=== PATIENT | male | born 1980 | race Caucasian/White ===

== ENCOUNTER 2016-12-24 13:06 | Emergency (ER) | payer BC ==
--- NOTE | 2016-12-24 15:00 | ER Document Report ---
HPI - HPI Patient complains to provider of: Left hand discoloration Onset: This afternoon Onset/Duration: Gone Quality of pain: No pain Pain Level: Denies Context: Patient states that he was on break while at work and noticed a pink/purple discoloration to the dorsal aspect of his left hand. Patient states symptoms lasted about an hour and then resolved. Patient denies any trauma to the hand. Patient denies any history of right nods or any known peripheral vascular issues. Patient denied any discomfort to his hand. Associated Symptoms: Other - Left hand discoloration Exacerbated by: Denies Relieved by: Denies Similar symptoms previously: No Recently seen / treated by doctor: No - ROS ROS below otherwise negative: Yes Systems Reviewed and Negative: Yes All other systems reviewed and negative - CONSTITUTIONAL Constitutional: DENIES: Fever - NEURO Neurology: DENIES: Weakness - GASTROINTESTINAL Gastrointestinal: DENIES: Nausea - REPRODUCTIVE Reproductive: DENIES: : - MUSCULOSKELETAL Musculoskeletal: DENIES: Extremity pain, Swelling - DERM Skin Color: Other - Transient hand discoloration Skin Problems: None Past Medical History - General Information source: Patient - Social History Smoking Status: Never Smoker Chew tobacco use (# tins/day): No Frequency of alcohol use: None Drug Abuse: None Occupation: [employer] Family History: CAD, DM, Hyperlipidemia, Hypertension, Malignancy - Past Medical History Cardiac Medical History: Reports: Hx Coronary Artery Disease, Hx Heart Attack, Hx Hypercholesterolemia, Hx Hypertension GI Medical History: Reports: Hx Gastroesophageal Reflux Disease Musculoskeltal Medical History: Reports Hx Arthritis - gout, Reports Hx Gout Past Surgical History: Reports: Hx Cardiac Catheterization - 4 stents, Hx Coronary Stent - 4, Hx Orthopedic Surgery - right hand - Immunizations Immunizations up to date: Yes Hx Diphtheria, Pertussis, Tetanus Vaccination: Yes Vertical Provider Document - CONSTITUTIONAL Agree With Documented VS: Yes Exam Limitations: No Limitations General Appearance: WD/WN, No Apparent Distress - INFECTION CONTROL TRAVEL OUTSIDE OF THE [place] IN LAST 30 DAYS: No - HEENT HEENT: Atraumatic, Normocephalic - NECK Neck: Normal Inspection, Supple - RESPIRATORY Respiratory: Breath Sounds Normal, No Respiratory Distress - CARDIOVASCULAR Cardiovascular: Regular Rate, Regular Rhythm, No Murmur Pulses: Normal: Radial Notes: Normal capillary refill to bilateral upper extremities, less than 3 seconds - BACK Back: Normal Inspection - MUSCULOSKELETAL/EXTREMETIES Musculoskeletal/Extremeties: MAEW, FROM, Non-Tender, No Edema. negative: Eccymosis - NEURO Level of Consciousness: Awake, Alert, Appropriate Motor/Sensory: No Motor Deficit, No Sensory Deficit - DERM Integumentary: Warm, Dry, No Rash Notes: Normal skin color and temperature to left hand Course - Vital Signs Vital signs: Temp Pulse Resp BP Pulse Ox 18 12/24/16 13:36 Discharge - Discharge Clinical Impression: temporary hand discoloration Condition: Stable Disposition: HOME, SELF-CARE Additional Instructions: Return immediately for any new or worsening symptoms Followup with your primary care provider, call tomorrow to make a followup appointment Your primary doctor can refer you to a vascular surgeon for a recheck of your symptoms Avoid extreme temperature changes Forms: Return to Work Referrals: IVÁN TELLEZ MD [ACTIVE STAFF] - Follow up as needed
[2016-12-24 15:16] VITALS: BP 110/70
== END 2016-12-24 15:15 | disposition home or self-care (01) ==
LOC: ER 13:06
DX: R23.8 Other skin changes (principal)
CPT/HCPCS: 99283

== ENCOUNTER 2018-01-24 07:26 | Emergency (ER) | payer BC ==
[2018-01-24] MEDS ORDERED: ASPIRIN 81 MG TABLET, CHEWABLE PO ONE (07:28)
[2018-01-24] MEDS ORDERED: HYDROCODONE/ACETAMINOPHEN 5-325 MG TABLET PO ONE (07:49)
--- NOTE | 2018-01-24 07:49 | ER Document Report ---
ED Cardiac - General Stated Complaint: CHEST PAIN Time Seen by Provider: 01/24/18 07:31 Mode of Arrival: Ambulatory Information source: Patient Notes: History of Present Illness Chief Complaint: Complete [ ] History obtained from [patient] 37 years old male with a history of 4 stents placed in 2015, March 2017 had 5 vessel bypass surgery, presents today with left precordial chest pain since this morning. It was not radiating not associated with any nausea vomiting palpitation or diaphoresis. He claims that he has been lifting heavy turkey and ham and that is what caused him the pain. The pain did not wake him up, it came on after he woke up and start moving around. Also says when he lifted his arm that his left arm it causes increasing pain. No fever chills or other constitutional symptoms Symptoms began:[ today] Onset: [gradual] Timing: [constant, now gone] Quality: ["pain"] Intensity: [moderate] Location: [Left precordial] Radiation: [none] Migration: [none] Aggravating factors: [none] Relieving factors: [none] Major PE risk factors: [none] Major aortic dissection risk factors: [none] Review of Systems: All other systems negative as reviewed. CONSTITUTIONAL No fever, No chills, No sweats. EYES No eye pain. ENT No URI symptoms, No sore throat, No ear pain. CARDIOVASCULAR + chest pain, No palpitations, No edema. RESPIRATORY No Cough, No SOB, No wheezing. GASTROINTESTINAL No abdominal pain, No nausea, No diarrhea, No vomiting, No GI Bleeding. GENITOURINARY No UTI symptoms. MUSCULOSKELETAL No back pain, No calf swelling, No calf pain. SKIN No Rash. NEUROLOGIC No Headache Physical Exam CONSTITUTIONAL Vital signs reviewed, Patient appears to be comfortable, Alert and oriented X 3 , Normal stature. HEAD Atraumatic, Normocephalic. EYES Eyes are normal to inspection, No discharge from eyes, Extraocular muscles intact, Sclera are normal, Conjunctiva are normal. ENT Ears normal to inspection, Nose examination normal, Posterior pharynx normal, Mouth normal to inspection. NECK Normal ROM, No jugular venous distention, No meningeal signs, no carotid bruit. RESPIRATORY CHEST Midline surgical scar noted in the chest Chest is nontender, Breath sounds normal, No respiratory distress. CARDIOVASCULAR RRR, No murmurs, Normal S1 S2, No rub, No gallop. ABDOMEN Abdomen is nontender, No pulsatile masses, No other masses, Bowel sounds normal , No distension, No peritoneal signs, No hernias. BACK There is no CVA Tenderness, There is no tenderness to palpation, Normal inspection. UPPER EXTREMITY Inspection normal, No cyanosis, No clubbing, No edema, 2+ radial pulses. LOWER EXTREMITY Inspection normal, No cyanosis, No clubbing, No edema, No calf tenderness, 2+ femoral pulses. NEURO No focal motor deficits, No focal sensory deficits, Speech normal. SKIN Skin is warm, Skin is dry, Skin is normal color. LYMPHATIC No adenopathy in neck. PSYCHIATRIC Normal affect. TRAVEL OUTSIDE OF THE [place] IN LAST 30 DAYS: No - HPI Notes: Dictated - Related Data Allergies/Adverse Reactions: No Known Allergies Allergy (Verified 12/24/16 13:29) Past Medical History - Social History Smoking Status: Never Smoker Frequency of alcohol use: Rare Drug Abuse: None Lives with: Family Family History: CAD, DM, Hyperlipidemia, Hypertension, Malignancy - Past Medical History Cardiac Medical History: Reports: Hx Coronary Artery Disease, Hx Heart Attack, Hx Hypercholesterolemia, Hx Hypertension GI Medical History: Reports: Hx Gastroesophageal Reflux Disease Musculoskeletal Medical History: Reports Hx Arthritis - gout, Reports Hx Gout Past Surgical History: Reports: Hx Cardiac Catheterization - 4 stents, Hx Coronary Stent - 4, Hx Orthopedic Surgery - right hand - Immunizations Immunizations up to date: Yes Hx Diphtheria, Pertussis, Tetanus Vaccination: Yes Review of Systems - Review of Systems Notes: Dictated Physical Exam - Vital signs Vitals: Pulse Ox 100 01/24/18 07:48 - Notes Notes: Dictated Course - Re-evaluation Re-evalutation: 01/24/18 15:54 Remained stable no chest pains. 2 sets of enzymes came back negative - Vital Signs Vital signs: Temp Pulse Resp BP Pulse Ox 15 115/85 99 01/24/18 13:01 01/24/18 13:01 01/24/18 13:01 - Laboratory Result Diagrams: 01/24/18 07:40 01/24/18 07:40 Laboratory results interpreted by me: 01/24/18 01/24/18 01/24/18 07:40 07:40 07:40 RDW 15.7 H Plt Count 124 L BUN 21 H Creatine Kinase 242 H CK-MB (CK-2) 4.79 H - Diagnostic Test Radiology reviewed: Reports reviewed - Normal chest x-ray - EKG Interpretation by Me EKG shows normal: Sinus rhythm - Sinus rhythm at the rate of 75 bpm, J-point elevation in V2. Otherwise compared with a old echocardiogram no major changes. No acute ST elevation ST depression. Discharge - Discharge Clinical Impression: Chest wall pain Condition: Fair Instructions: Chest Wall Pain ([facility])
[2018-01-24 07:58] LABS: ABSOLUTE EOSINOPHILS # (AUTO) 0.2 10^3/uL (0.0-0.6); ABSOLUTE LYMPHOCYTES (AUTO) 1.5 10^3/uL (0.5-4.7); ABSOLUTE MONOCYTES (AUTO) 0.4 10^3/uL (0.1-1.4); ABSOLUTE NEUT (AUTO) 2.9 10^3/uL (1.7-8.2); BASOPHILS % (AUTO) 0.5 % (0-2); EOSINOPHILS % (AUTO) 3.5 % (0-6); HEMATOCRIT 41.4 % (37.9-51.0); HEMOGLOBIN 14.5 g/dL (13.5-17.0); LYMPHOCYTES % (AUTO) 30.3 % (13-45); MEAN CORPUSCULAR HEMOGLOBIN 27.9 pg (27.0-33.4); MEAN CORPUSCULAR VOLUME 80 fl (80-97); MONOCYTES % (AUTO) 7.2 % (3-13); PLATELET COUNT 124 10^3/uL (150-450); RED BLOOD COUNT 5.18 10^6/uL (4.35-5.55); RED CELL DISTRIBUTION WIDTH 15.7 % (11.5-14.0); SEGMENTED NEUTROPHILS % (AUTO) 58.5 % (42-78); TOTAL CELLS COUNTED % (AUTO) 100 %; WHITE BLOOD COUNT 4.9 10^3/uL (4.0-10.5)
[2018-01-24 08:01] LABS: INTERNATIONAL RATION (INR) 1.01; PROTHROMBIN TIME 13.8 SEC (11.4-15.4)
[2018-01-24 08:08] LABS: ALANINE AMINOTRANSFERASE 58 U/L (21-72); ALBUMIN 3.9 g/dL (3.5-5.0); ALKALINE PHOSPHATASE 90 U/L (38-126); ANION GAP 10 (5-19); ASPARTATE AMINO TRANSFERASE 38 U/L (17-59); BILIRUBIN,DIRECT 0.2 mg/dL (0.0-0.4); BILIRUBIN,TOTAL 0.7 mg/dL (0.2-1.3); BLOOD UREA NITROGEN 21 mg/dL (7-20); CALCIUM 9.2 mg/dL (8.4-10.2); CARBON DIOXIDE 28 mmol/L (22-30); CHLORIDE 105 mmol/L (98-107); CREATINE KINASE 242 U/L (55-170); GLUCOSE 82 mg/dL (75-110); POTASSIUM 4.1 mmol/L (3.6-5.0); SODIUM 143.1 mmol/L (137-145); TOTAL PROTEIN 6.4 g/dL (6.3-8.2)
[2018-01-24 08:19] LABS: CREATINE KINASE MB 4.79 ng/mL (<4.55)
[2018-01-24 08:21] LABS: TROPONIN I < 0.012 ng/mL
--- NOTE | 2018-01-24 08:34 | RADIOLOGY REPORT (SQ) ---
EXAM DESCRIPTION: CHEST SINGLE VIEW COMPLETED DATE/TIME: 01/24/2018 8:19 am REASON FOR STUDY: cp COMPARISON: CT angio chest 02/03/2016, Chest films 02/03/2016, 08/17/2015 EXAM PARAMETERS: NUMBER OF VIEWS: One view. TECHNIQUE: Single frontal radiographic view of the chest acquired. RADIATION DOSE: NA LIMITATIONS: None. FINDINGS: LUNGS AND PLEURA: No opacities, masses or pneumothorax. No pleural effusion. MEDIASTINUM AND HILAR STRUCTURES: No masses. Contour normal. HEART AND VASCULAR STRUCTURES: Old sternotomy for CABG. No cardiomegaly BONES: No acute findings. HARDWARE: None in the chest. OTHER: No other significant finding. IMPRESSION: No acute findings TECHNICAL DOCUMENTATION: JOB ID: [id number] [employer]- All Rights Reserved Reading location - IP/workstation name: [email or web address]
[2018-01-24 16:51] VITALS: BP 137/84
--- NOTE | 2018-01-25 00:15 | EKG REPORT ---
SEVERITY:- ABNORMAL ECG - SINUS RHYTHM LAD, CONSIDER LEFT ANTERIOR FASCICULAR BLOCK ST ELEV, PROBABLE NORMAL EARLY REPOL PATTERN : Confirmed by: David Camp 25-Jan-2018 00:14:49
== END 2018-01-24 16:51 | disposition home or self-care (01) ==
LOC: ER 07:26
DX: R07.89 Other chest pain (principal); X50.0XXA Overexertion from strenuous movement or load, initial encounter; I25.10 Atherosclerotic heart disease of native coronary artery without angina pectoris; I10 Essential (primary) hypertension; I25.2 Old myocardial infarction; Z95.5 Presence of coronary angioplasty implant and graft; Z95.1 Presence of aortocoronary bypass graft; Z82.49 Family history of ischemic heart disease and other diseases of the circulatory system
CPT/HCPCS: 36415; 71045; 80053; 82550; 82553; 84484; 85025; 85610; 93005; 93010; 99284